=== PATIENT | female | born 1980 | race Caucasian/White ===

== ENCOUNTER 2017-07-04 15:04 | Emergency (ER) | payer OTHER, MEDICAID, SELFPAY ==
[2017-07-04 15:05] VITALS: BP 138/87; PULSE 81; RESP 16; TEMP 37.2; O2SAT 99; BMI 23.2
--- NOTE | 2017-07-04 15:25 | ED.DCSUM_ITS ---
- ER Visit Summary Date of Service: 07/04/17 Chief Complaint: Vomiting History of Present Illness: The patient is a 36 F who presents with nausea vomiting since yesterday. Patient states she also has generalized myalgias. She denies any significant abdominal pain noted mostly cramping. No diarrhea. No known fevers. No known bad food exposures or recent antibiotics. No one else sick at home. Physical Examination: Afebrile vital signs are stable Gen: Well-nourished well-developed and appears to not feel well. She is holding an emesis basin. Head: Normocephalic atraumatic Eyes: Perrl EOMI ENT: TMs clear no rhinorrhea moist mucous membranes Neck: Supple no lymphadenopathy no JVD nontender CVS: Regular rate rhythm no murmurs normal S1-S2 Respiratory: No distress clear to auscultation bilaterally chest nontender Abdomen: Soft nontender nondistended normal bowel sounds no masses Back: Nontender Extremity: Nontender no edema Skin: Normal color no rash Neuro: alert orientated ?3 CN II-XII intact normal strength sensation reflexes gait cerebellar Psych: Normal affect normal mood Test Results: White count of 14. Chemistries showed a creatinine 1.15. Liver lipase normal. Urinalysis 0-5 white cells 2-5 red cells rare bacteria test is negative. CT of the abdomen pelvis demonstrated a left distal ureteral stone with associated hydronephroureter. Emergency Department Course and Treatment: Patient received fluids Phenergan Toradol was improved. She will be discharged home with Kunia, Zofran, Flomax. She is to follow-up with urology return if worsening or if pain is not controlled. Impression: 1. Vomiting 2. Left distal ureteral kidney stone This note was generated with [employer] dictation software. It may contain incorrect words, spelling, and punctuation that were not noted in review of the chart prior to signing ED Disposition - Plan for ED Patient: Disposition: Home or Assisted Living Chief Complaint: Nausea/Vomiting Instructions: ED Stone Renal W Colic Prescriptions: Hydrocodone Bitart/Apap 5-325 [Kunia 5/325] 1 - 2 tab PO Q4H PRN PRN 4 Days #20 tab PRN Reason: Pain Ondansetron [Zofran Odt] 4 mg PO Q8H PRN PRN #10 tab PRN Reason: Nausea Tamsulosin HCl [Flomax] 0.4 mg PO DAILY 7 Days cap Referrals: Care Physician,No Primary [Primary Care Provider] - Antonio Phillips MD [STAFF PHYSICIAN] - (CALL IN AM TO ARRANGE FOLLOW UP)
[2017-07-04] MEDS: 0.9% Normal Saline 1,000 ML 1000 ML IV (15:27)
[2017-07-04 15:51] LABS: Mucous, Urine 0 SEEN /hpf (<or=2+)
[2017-07-04 15:55] LABS: Absolute Lymphocyte Count 1.63 X10^3/ul (0.83-4.51); Absolute Neutrophil Count 11.8 X10^3/uL (2.0-7.7); Basophil# 0.02 X10^3/uL; Basophil% 0.1 % (0-1); Hemoglobin 14.6 g/dl (12.0-15.0); Lymphocyte # 1.63 X10^3/ul (4.0); Lymphocyte % 11.4 % (19-41); Mean Corp Hgb Conc 33.2 g/gl (32-36); Mean Corpuscular Hgb 31.1 pg (27.0-32.0); Mean Corpuscular Volume 93.6 fL (81-99); Monocyte# 0.88 X10^3/uL; Monocyte% 6.1 % (0-10); Neutrophil # 11.77 X10^3/uL (2.7-7.7); Neutrophil % 82.3 % (47-70); Platelet Count 279 K/mm3 (150-450); RBC Distribution Width CV 13.1 % (11.6-14.6); RBC Distribution Width SD 44.9 fl (35.1-43.9); White Blood Count 14.3 K/mm3 (4.4-11.0)
[2017-07-04 15:56] LABS: POSITIVE COUNT NO; POSITIVE DIFFERENTIAL NO; POSITIVE MORPHOLOGY NO
[2017-07-04 16:11] LABS: ALB/GLOB Ratio 1.3 RATIO (0.9-2.4); AST(SGOT) 15 U/L (15-37); Alanine Aminotransfer ALT/SGPT 17 U/L (13-56); Albumin, Serum 4.4 g/dL (3.2-5.0); Alkaline Phosphatase 53 U/L (45-117); Anion Gap 11 (5-15); BUN 9 mg/dL (7-18); BUN/Creat Ratio 7.8 RATIO (10-20); Chloride 105 mmol/L (98-107); Creatinine, Serum 1.15 mg/dL (0.55-1.02); EST Glomerular Filtration Rate 57 mL/min (>60); Est Glom Filt Rate - Afr Amer 69 mL/min (>60); Estimated Creatinine Clearance 63.92 ml/min; Globulin 3.4 g/dL (2.2-4.2); Glucose 100 mg/dL (74-106); Lipase 94 U/L (73-393); Potassium 3.2 mmol/L (3.5-5.1); Protein, Total 7.8 g/dL (6.4-8.2); Sodium Level 140 mmol/L (136-145)
[2017-07-04] MEDS: Dicyclomine 10 MG Capsule 20 MG PO (16:23)
[2017-07-04 16:32] LABS: Color, Urine Yellow (Yellow); Glucose, Dipstick Normal (Normal); Internal QC Validated? YES +Cl - CLEAR BKGD; Ketone-Dipstick 50 mg/dl (Negative); Leukocyte Esterase-Dipstick Negative /ul (Negative); Nitrite-Dipstick Negative (Negative); Occult Blood-Urine 150 /ul (Negative); Pregnancy, Urine Negative Negative; Protein-Dipstick 15 mg/dl (Negative); Specific Gravity, Urine 1.025 (1.002-1.030); Urine Bilirubin Dipstick Negative (Negative); Urine Clarity Cloudy (Clear); Urine Urobilinogen 1 mg/dl (Normal)
[2017-07-04 16:41] LABS: Calcium Oxalate Crystals Ur 1+ /hpf (<or=2+)
[2017-07-04 16:42] LABS: Amorphous Sediment 3+; Squamous Epithelial Cells - UA 10-25 SEEN /hpf (5-10); White Blood Cells 0-5 SEEN /hpf (0-5)
[2017-07-04 16:43] LABS: Red Blood Cells-Urine 0-5 SEEN /hpf (0-5)
[2017-07-04 16:44] LABS: Bacteria RARE /hpf (None Seen)
--- NOTE | 2017-07-04 17:02 | CT_ITS ---
STUDY: CT ABDOMEN AND PELVIS WITH CONTRAST REASON FOR EXAM: Female, 36 years old. Nausea. Abdominal pain. RADIATION DOSAGE (If Supplied By Facility): CTDIvol = ( 12.02 ) mGy, DLP = ( 549.21 ) mGycm TECHNIQUE: Transaxial images were obtained from the dome of the diaphragm to the symphysis pubis without oral contrast. 100 ml of Isovue 300 contrast was administered. Sagittal and coronal images were reconstructed. Individualized dose optimization techniques were used for this CT. COMPARISON: September 04, 2007. FINDINGS: The visualized lung bases are unremarkable. The visualized portions of the heart are within normal limits. Normal liver. Normal gallbladder and extrahepatic biliary system. Normal spleen. Normal pancreas. Normal bilateral adrenal glands. Normal right kidney. There is 0.2 cm stone in the lower pole of the left kidney. There is mild left hydronephrosis with perinephric stranding and decreased function. There is a 0.4 cm left distal ureteral stone, series 2 image 99/122. Normal visualized stomach. Normal small intestine. Normal colon. The appendix is visualized and appears normal. Normal abdominal aorta. Normal inferior vena cava. Normal retroperitoneum. Normal urinary bladder. There is IUD in the lower uterus. There is left adnexal follicle. There is mild fluid in the pelvis. Normal abdominal wall. There is lumbar levoscoliosis. CT/Abdomen/Pelvis W IV Cont ONLY IMPRESSION: Left renal and distal ureteral stones with hydronephrosis and diminished function. Electronically Signed: Fredi Sapp MD at 17:49 EDT , Service support ,
[2017-07-04] MEDS: Ondansetron 4 MG/2 ML Vial IV (17:04)
[2017-07-04 17:14] VITALS: BP 129/81; PULSE 48; RESP 14; O2SAT 99
[2017-07-04] MEDS: Ketorolac 30 MG/ML Syringe IV (18:28)
[2017-07-04 18:30] VITALS: PULSE 64; RESP 15; O2SAT 98
== END 2017-07-04 18:33 | disposition home or self-care (01) ==
PROVIDERS: Emergency Provider Emergency Medicine
DX: N13.2 Hydronephrosis with renal and ureteral calculous obstruction (principal); R11.2 Nausea with vomiting, unspecified
CPT/HCPCS: 74177; 80053; 81001; 81025; 83690; 85025; 96361; 96374; 96375; 99283; J7030; Q9967; A4216; J2405

== ENCOUNTER 2019-11-05 10:44 | Emergency (ER) | payer BC, MEDICAID, SELFPAY ==
[2019-11-05 10:45] VITALS: BP 132/100; PULSE 89; RESP 18; TEMP 37.3; O2SAT 97; BMI 26.0
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
== END 2019-11-05 11:42 | disposition home or self-care (01) ==
LOC: ED 11:19
PROVIDERS: Emergency Provider Emergency Medicine
DX: M54.2 Cervicalgia (principal); V43.52XA Car driver injured in collision with other type car in traffic accident, initial encounter; Y93.89 Activity, other specified; Y92.410 Unspecified street and highway as the place of occurrence of the external cause; Y99.9 Unspecified external cause status; G80.9 Cerebral palsy, unspecified; Z88.1 Allergy status to other antibiotic agents
CPT/HCPCS: 99284

== ENCOUNTER → 2021-01-10 10:56 | Outpatient (CLI) | payer BC, MEDICAID, SELFPAY | PROVIDERS: Referring Provider Physician Assistant Surgical; Visit Provider Physician Assistant Surgical | DX: Z20.822 Contact with and (suspected) exposure to COVID-19 (principal) | CPT/HCPCS: 87635; U0005; U0003 ==